=== PATIENT | female | born 1995 | race Caucasian/White ===

== ENCOUNTER 2024-01-30 18:15 | Emergency (ER) | payer MEDICARE, SELFPAY ==
[2024-01-30 18:15] VITALS: BMI 30.8
[2024-01-30 18:24] VITALS: BP 123/60
--- NOTE | 2024-01-30 20:13 | ED.GENMED ---
History of Present Illness
General
Chief Complaint: Back Pain
Source: patient
Exam Limitations: none
Time Seen by Provider: 01/30/24 19:06
Nursing documentation reviewed up to this point in time: agreed with
History of Present Illness
History of Present Illness:
pt is a 28 y/o F with no sig pmh
on control nuva ring
here with R sided back pain that woke her up in the night, felt like a sharp nonradiating pain that is worse with movement and deep breathing. she took a hot shower and tried moving her bowels. she says she didn't sleep well becuase of the pain but
ultimately in the morning it went away
she started noticing it returning at 4 pm
previously while had upper abd/back pain and was told she had gallbladder sludge
she also has had urinary frequency and strong smellin uring and was wondering if she has a kidney stone
no fever, chills, nausea, vomiting, weakness/numbness, cough, abdominal pain, chest pain
no recent travle
Past History
Past History
ED Past Medical History: None
ED Past Surgical History: None
Social History
Tobacco: Non-smoker
Alcohol: None
Drug: None
Personal:
Living: with family
Review of Systems
Review of Systems
Allergies reviewed?: Yes
All Other Systems: Not applicable
Phy Exam
Physical Exam
Physical Exam:
GENERAL: Alert , in no apparent distress, comfortable at rest
HEAD: NCAT
NECK: no midline tenderness, active ROM intact, no paraspinal muscle tenderness;
CARDIAC: Regular rate and rhythm, no edema
LUNGS: Clear breath sounds bilaterally, no acute respiratory distress, no wheezes/rales/rhonchi
ABDOMEN: Soft, without focal tenderness, no r/g, no cvat, normal bowel sounds, nondistended
NEUROLOGICAL: Alert and oriented, no focal neuro deficits, CN intact, 5/5 strength, sensation intact, ambulation slight limp left leg
SKIN: Warm and dry,
MUSCULOSKELETAL: No edema, well perfused.
Back: No midline tenderness, no cva tenderness
negative straight leg raise Bilaterally
PSYCH: Normal and appropriate interaction.
Course
Orders/Labs/Results
Orders:
Orders
01/30/24 19:32
Ketorolac [Toradol] 30 mg IV NOW STA
Test Result ONCE
01/30/24 20:39
Complete Blood Count/With Diff Urgent
Comprehensive Metabolic Panel Urgent
D-Dimer Urgent
HCG, Serum Qualitative Screen Urgent
Lipase Urgent
01/30/24 20:41
Urinalysis Reflex To Culture Urgent
Date Specimen was Collected: 01/30/24
Time Specimen was Collected: 20:41
01/30/24 21:30
CT Chest Pe Study Urgent
Comment:
Reason For Exam: right sided pleurutic pain, elevated dimer
01/30/24 22:47
Ketorolac [Toradol] 30 mg IV NOW STA
Abnormal Lab Results
01/30/24
20:39
Hct 36.6 L %
(37.0-47.0)
MCV 77.7 L fL
(81.0-99.0)
MPV 11.4 H fL
(7.4-10.4)
D-Dimer 0.63 H ug/mlFEU
(0.00-0.50)
01/30/24 20:39
01/30/24 20:39
Vital Signs
Initial and Last Documented VS:
Initial Vital Signs
Temp Pulse Resp BP Pulse Ox
98.0 F 82 16 123/60 100
01/30/24 18:24 01/30/24 18:24 01/30/24 18:24 01/30/24 18:24 01/30/24 18:24
Last Documented Vital Signs
Temp Pulse Resp BP Pulse Ox
98.0 F 81 18 106/60 100
01/30/24 18:24 01/30/24 22:42 01/30/24 22:42 01/30/24 22:42 01/30/24 22:42
MDM/Problems Addressed
Differential Diagnosis Includes:
msk pain, kidney stone, pe, cholelithiasis
MDM/Problems Addressed:
28 y/o F with no sig pmh
right sided back pain early this morning, then improved, then returned
feels like a pain in the R back, nonradiating
worse with breathing
uses nuvaring
no cough, fever, nausea, vomiting, diarrhea, urinary symptoms
well appearing, not uncomfortable
no rash
no cva tenderness, no abdominal tendenress
has pain with deep breathing
cannot perc out
so d dimer whic hwas elevated so --> ct --> neg for PE
pt also had reassuring labs, normal lfts/lpiase and neg urine
d/c home nsaids
*Critical Care Note
Total Time (30-74mins, 75-104mins- exclusive of procedures): Not Applicable
ED Attending Note
-
Portions of this chart may have been created with voice recognition software.� Occasional wrong word or��sound alike� substitutions may have occurred due to the inherent limitations of voice recognition software.
Discharge Plan
Departure
Patient Disposition: Home (Routine Discharge)
Date of Disposition: 01/30/24
Time of Disposition: 22:48
Patient with high blood pressure during this ER visit?: No
Condition: Fair
Covid-19: Not Applicable
Discharge Problem:
Back pain
Instructions: Upper Back Pain (DC)
Referrals:
Jean Tamayo DO [Family Provider] - Follow up in 2-3 days
Activity Restrictions/Additional Instructions:
we are not sure the cause of your back pain but your blood work was reassuring that this is likely muscular
you could have a muscle spasm or pinched nerve
try motrin 600 mg every 8 hours with food fo 3-5 dyas for inflammation
your blood work showed normal liver enzymes, urine is clean
your cat scan showed no blood clot in your lungs
watch for worsening symptoms like fever, chills, nausea, vomiting, rash, cough, abdominal pain, blood in your urine
return fo rthis as needed
Interventions
Interventions:
*Risk Screen - Suicide Last Done: 01/30/24 20:45
*General Assessment Last Done: 01/30/24 20:45
*Neglect/Abuse Screening Last Done: 01/30/24 20:45
ED- Fall Risk Assessment Last Done: 01/30/24 20:45
ED-Musculoskeletal Assessment Last Done: 01/30/24 20:48
Discharge Date and Time
Print Language: TONGAN
[2024-01-30 20:43] VITALS: BP 99/62
--- NOTE | 2024-01-30 20:50 | EDRN ---
Pt. refused IV, aware may need if CTA required. Also denied pain medication, reports is pain free and will ring call martel if changes mind, provider aware.
[2024-01-30 20:55] LABS: Urine Albumin Negative (Neg - Trace); Urine Bilirubin Negative (Negative); Urine Character Clear (Clear); Urine Color Yellow; Urine Glucose Negative (Negative); Urine Ketone Negative (Negative); Urine Leukocyte Negative (Negative); Urine Nitrite Negative (Negative); Urine Occult Blood Negative (Negative); Urine Specific Gravity 1.015 (<1.030); Urine Urobilinogen 1+ (Neg - 1+)
[2024-01-30 20:59] LABS: % Basophils 0.8 % (0-2); % Eosinophils 1.7 % (0-6); % Immature Granulocytes 0.3 % (0-0.5); % Lymphocytes 35.2 % (20.5-51.1); % Monocytes 5.2 % (1.7-9.3); % Neutrophils 56.8 % (42.2-75.2); Absolute Basophils 0.1 10^3/uL (0-0.2); Absolute Eosinophils 0.2 10^3/uL (0-0.7); Absolute Monocytes 0.5 10^3/uL (0.1-0.6); Absolute Neutrophils 4.9 10^3/uL (1.4-6.5); Hematocrit 36.6 % (37.0-47.0); Hemoglobin 12.9 g/dL (12.0-16.0); Mean Corp Hgb Conc. 35.2 g/dL (33.0-37.0); Mean Corpuscular Hgb 27.4 pg (27.0-31.0); Mean Corpuscular Volume 77.7 fL (81.0-99.0); Mean Platelet Volume 11.4 fL (7.4-10.4); Nucleated Red Blood Cells % 0 %; Platelet Count 239 10^3/uL (130-400); Red Blood Cell Count 4.71 10^6/uL (4.20-5.40); Red Cell Dist. Width 13.4 % (11.5-14.5); White Blood Cell Count 8.6 10^3/uL (4.8-10.8)
[2024-01-30 21:07] LABS: D-Dimer 0.63 ug/mlFEU (0.00-0.50)
[2024-01-30 21:14] LABS: HCG, Serum Qualitative Screen Negative
[2024-01-30 21:19] LABS: ALT (SGPT) 15 U/L (0-35); AST (SGOT) 22 U/L (14-36); Albumin 4.3 g/dl (3.5-5.0); Alkaline Phosphatase 73 U/L (38-126); Blood Urea Nitrogen 10 mg/dl (7-17); Calcium 9.9 mg/dl (8.4-10.2); Carbon Dioxide 26 mmol/L (22-30); Chloride 105 mmol/L (98-107); Estimated Creatinine Clearance 97 ml/min; Glucose 88 mg/dl (70-99); Lipase 147 U/L (23-300); Sodium 136 mmol/L (135-145); Total Bilirubin 0.4 mg/dl (0.2-1.3); eGFR > 60.00
[2024-01-30 22:42] VITALS: BP 106/60
[2024-01-30] MEDS: TORADOL 30 MG IV (22:51)
[2024-01-30 22:58] VITALS: BP 106/60
== END 2024-01-30 22:58 | disposition home or self-care (01) ==
LOC: EMR 18:15
PROVIDERS: Physician Assistant; EMERGENCY PHYSICIAN Emergency Medicine; FAMILY PHYSICIAN Family Medicine
DX: M54.6 Pain in thoracic spine (principal); R35.0 Frequency of micturition; Z79.3 Long term (current) use of hormonal contraceptives
CPT/HCPCS: 99284; 96374; 71275; 80053; 81003; 83690; 84703; 85025; 85379; Q9967